=== PATIENT | female | born 1950 | race Two or more races ===

== ENCOUNTER 2017-01-05 09:03 | Day surgery (SDC) | payer OTHER ==
[~2017-01-05] VITALS: Ht 167.6 cm; Wt 75.6 kg
[2017-01-05 10:16] VITALS: Ht 167.6 cm; Wt 75.6 kg
[2017-01-05] MEDS ORDERED: EZET10TA3 PO (10:21)
[2017-01-05] MEDS ORDERED: METF500T4 PO (10:21)
[2017-01-05] MEDS ORDERED: ATEN100T PO (10:21)
[2017-01-05 10:22] VITALS: BP 167/74; PULSE 49; RESP 18
[2017-01-05] MEDS ORDERED: FENTAnyl 50 MCG/ML VIAL ONE (11:07)
[2017-01-05] MEDS ORDERED: MIDAZOLAM 1 MG/ML 2 ML INJ ONE (11:07)
[2017-01-05 11:35] VITALS: BP 117/77; PULSE 44; RESP 24
--- NOTE | 2017-01-05 21:23 | GILP ---
DATE OF PROCEDURE: PROCEDURE: Screening colonoscopy to rule out colon polyps. POSTOPERATIVE DIAGNOSES: Minimal diverticulosis and minimal external hemorrhoids. DESCRIPTION OF PROCEDURE: After informed written consent was obtained, the patient was asked to lie on the left lateral side. Patient was given intravenous anesthesia by the nurse, which included 2 mg Versed and 50 mcg of fentanyl. When the patient became somnolent, Olympus video colonoscope was introduced into the rectum and scope was advanced all the way to the cecum. The entire colon appear ed perfectly normal. Occasional diverticula noted scattered along the mucosal surface of the colon. No diverticulitis. No bleeding noted. Scope at this time was withdrawn from the cecum. On the w ay out, further evaluation was carried out. Minimal external hemorrhoids were noted and the procedu re was terminated. PLAN: Recommend repeat colonoscopy in 10 years. Dictated By: MARIO KUMARI MD NC/NTS Conf#: [id number] DID#: [id number] CC: Almita Mcneal MD;*EndCC*
== END 2017-01-05 11:54 | disposition home or self-care (01) ==
LOC: GIL 09:03
PROVIDERS: ATTEND Internal Medicine Gastroenterology
DX: Z12.11 Encounter for screening for malignant neoplasm of colon (principal); K57.90 Diverticulosis of intestine, part unspecified, without perforation or abscess without bleeding; K64.4 Residual hemorrhoidal skin tags; E11.9 Type 2 diabetes mellitus without complications; I10 Essential (primary) hypertension
CPT/HCPCS: 45378; J2250; J3010; Z7610